=== PATIENT | female | born 1970 | race Caucasian/White ===

== ENCOUNTER 2023-04-09 11:23 | Emergency (ER) | payer BC ==
[~2023-04-09] VITALS: Ht 165.1 cm; Wt 104.3 kg
[2023-04-09] MEDS ORDERED: IBUPROFEN 600 MG TABLET PO ONE (12:30)
[2023-04-09] MEDS ORDERED: HYDROCODONE/ACETAMINOPHEN 5/325 MG TAB PO ONE (12:30)
[2023-04-09 13:08] LABS: BASOPHILS # (AUTO) 0.06 K/uL (0.00-0.20); BASOPHILS % (AUTO) 0.5 % (0.0-5.0); EOSINOPHILS # (AUTO) 0.33 K/uL (0.00-0.70); EOSINOPHILS % (AUTO) 2.8 % (0.0-8.0); IMMATURE GRANULOCYTE ABSOLUTE 0.08 K/uL (0-1); LYMPHOCYTES # (AUTO) 2.6 K/uL (1.0-4.8); LYMPHOCYTES % (AUTO) 21.7 % (21.0-51.0); MEAN CORPUSCULAR HEMOGLOBIN 29.5 pg (27.0-33.0); MEAN CORPUSCULAR VOLUME 89.5 fL (79-99); MONOCYTES # (AUTO) 1.2 K/uL (0.1-1.0); MONOCYTES % (AUTO) 9.9 % (3.0-13.0); NEUTROPHILS # (AUTO) 7.6 K/uL (1.8-7.7); NEUTROPHILS % (AUTO) 64.4 % (40.0-77.0); PLATELET COUNT (AUTO) 266 K/uL (130-400); RED BLOOD CELL COUNT(AUTO) 4.47 MIL/uL (4.00-5.50); RED CELL DISTRIBUTION WIDTH 12.8 % (11.0-15.5); WHITE BLOOD COUNT (AUTO) 11.8 K/uL (4.8-10.8)
[2023-04-09 13:42] LABS: CREATININE 0.7 mg/dL (0.5-1.5); POTASSIUM 3.9 mmol/L (3.5-5.1)
[2023-04-09 13:47] LABS: ALBUMIN 3.2 g/dL (3.5-5.0); BILIRUBIN,TOTAL 0.2 mg/dL (0.2-1.0); TOTAL PROTEIN, SERUM 7.3 g/dL (6.0-8.3)
[2023-04-09] MEDS ORDERED: LIDOCAINE 2%-EPI 1:200,000 20 ML VIAL IJ SCH (17:00)
[2023-04-09] MEDS ORDERED: MUPIROCIN OINTMENT 22 GM TUBE TP SCH (17:00)
[2023-04-09] MEDS ORDERED: CEFTRIAXONE 1G VIAL IM ONE (17:00)
[2023-04-09] MEDS ORDERED: MUPI22OI2 TP (17:07)
[2023-04-09] MEDS ORDERED: SULF1TAB42 PO (17:07)
[2023-04-09 17:11] VITALS: BP 131/86; PULSE 80; RESP 18; O2SAT 96
[2023-04-09] MEDS ORDERED: BACITRACIN 1 EACH PACKET TP ONE (17:19)
== END 2023-04-09 17:40 | disposition home or self-care (01) ==
LOC: EDH 11:23
DX: J86.9 Pyothorax without fistula (principal); R07.81 Pleurodynia; E03.9 Hypothyroidism, unspecified
CPT/HCPCS: 99284; 10060; 71046; 80053; 85025; 36415; 76604; 96372; 93005; J0696; J3490